=== PATIENT | female | born 1955 | race Caucasian/White ===

== ENCOUNTER → 2019-10-05 | Outpatient (CLI) | payer MEDICARE, OTHER ==
--- NOTE | 2019-10-05 17:46 | Diagnostic Imaging Report ---
INDICATION: Difficulty breathing for two weeks. FINDINGS: Frontal and lateral views of the chest demonstrate some COPD changes. There are no infiltrates. Heart size and vascularity are normal. There are no pleural effusions. IMPRESSION: COPD. Dictated by: Dictated on workstation # [id number]
== END ==
LOC: RAD FS 17:16
PROVIDERS: ATTEND Nurse Practitioner Family
DX: J44.9 Chronic obstructive pulmonary disease, unspecified (principal)
CPT/HCPCS: 71046